=== PATIENT | female | born 1940 | race Two or more races ===

== ENCOUNTER 2024-04-06 10:43 | Observation (INO) | payer OTHER ==
[2024-04-06 11:49] LABS: BASOPHILS ABSOLUTE AUTO 0.02 K/uL (0.00-0.20); BASOPHILS PERCENT AUTO 0.3 % (0.0-1.0); EOSINOPHILS ABSOLUTE AUTO 0.05 K/uL (0.00-0.45); EOSINOPHILS PERCENT AUTO 0.7 % (0.0-6.0); HEMATOCRIT 45.8 % (37.0-47.0); HEMOGLOBIN 15.1 g/dL (12.0-16.0); IMMATURE GRAN ABSOLUTE AUTO 0.02 K/uL (0.00-0.05); IMMATURE GRAN PERCENT AUTO 0.3 % (0.0-0.4); LYMPHOCYTES ABSOLUTE AUTO 1.37 K/uL (1.00-4.80); LYMPHOCYTES PERCENT AUTO 18.5 % (24.0-44.0); MEAN CORPUSCULAR HEMOGLOBIN 30.5 pg (28.0-32.0); MEAN CORPUSCULAR VOLUME 92.5 fL (83.0-99.0); MEAN PLATELET VOLUME 10.4 fL (9.4-12.3); MONOCYTES PERCENT AUTO 9.5 % (0.0-8.0); NEUTROPHILS ABSOLUTE AUTO 5.24 K/uL (1.80-7.70); NEUTROPHILS PERCENT AUTO 70.7 % (41.0-71.0); PLATELET COUNT,PLT 229 K/uL (150-400); RED BLOOD CELL COUNT 4.95 M/uL (4.10-5.30)
[2024-04-06 12:26] LABS: A/G RATIO 1.3 (0.9-1.6); ALBUMIN 3.6 g/dL (3.4-5.0); BILIRUBIN TOTAL 0.9 mg/dL (0.2-1.0); CALCIUM 9.6 mg/dL (8.5-10.1); CARBON DIOXIDE,CO2 35.3 mmol/L (21.0-32.0); CREATININE 2.1 mg/dL (0.6-1.0); EST CRCL DRUG DOSING (CG) 17.77 mL/min; MAGNESIUM 2.3 mg/dL (1.8-2.4); PROTEIN TOTAL,TP 6.4 g/dL (6.4-8.2)
[2024-04-06 12:27] LABS: APPEARANCE,URINE CLOUDY; BILIRUBIN,URINE NEGATIVE (NEGATIVE); COLOR,URINE YELLOW; GLUCOSE,URINE NEGATIVE (NEGATIVE); KETONES,URINE NEGATIVE (NEGATIVE); LEUKOCYTE ESTERASE,URINE MODERATE (NEGATIVE); NITRITE,URINE NEGATIVE (NEGATIVE); OCCULT BLOOD,URINE NEGATIVE (NEGATIVE); PH,URINE 6.5 (5.0-8.0); PROTEIN,URINE NEGATIVE (NEGATIVE); UROBILINOGEN,URINE 0.2 EU/dL (<2.0)
[2024-04-06 12:38] LABS: AMORPHOUS SEDIMENT,URINE FEW (NEGATIVE); BACTERIA,URINE 1+ (NEGATIVE); EPITHELIAL CELLS,URINE OCCASIONAL (NONE-FEW); RBC,URINE 0-2 (0-2/HPF); WBC,URINE 18-26 (0-5/HPF)
[2024-04-06] MEDS: cefTRIAXone 2 GM in Sodium Chloride 0.9% 50 ML IV ONE (13:25)
[2024-04-06] MEDS: Sodium Chloride 0.9% 10 ML Syringe FLUSH PRN (13:27)
[2024-04-06] MEDS ORDERED: Sodium Chloride 0.9% 10 ML Syringe FLUSH PRN (14:54)
[2024-04-06] MEDS ORDERED: Ondansetron 4 MG/2 ML SDV IVPUSH PRN (14:54)
[2024-04-06] MEDS ORDERED: Sodium Chloride 0.9% 2.5 ML Syringe FLUSH PRN (14:54)
[2024-04-06] MEDS ORDERED: Acetaminophen 325 MG Tab PO PRN (14:54)
[2024-04-06] MEDS: Sodium Chloride 0.9% 1,000 ML IV ONE (15:22)
[2024-04-06] MEDS: Amiodarone 200 MG Tab PO SCH (16:24)
[2024-04-06] MEDS: Metoprolol Tartrate 50 MG Tab PO SCH (21:14)
[2024-04-06] MEDS: Apixaban 2.5 MG Tab PO SCH (21:14)
[2024-04-06] MEDS: atorvaSTATin 20 MG Tab PO SCH (21:14)
[2024-04-06] MEDS: Formoterol/Mometasone 200-5 MCG 8.8 GM Inhaler INH SCH (21:20)
[2024-04-07 05:53] LABS: BASOPHILS ABSOLUTE AUTO 0.02 K/uL (0.00-0.20); BASOPHILS PERCENT AUTO 0.3 % (0.0-1.0); EOSINOPHILS ABSOLUTE AUTO 0.16 K/uL (0.00-0.45); EOSINOPHILS PERCENT AUTO 2.2 % (0.0-6.0); HEMATOCRIT 43.9 % (37.0-47.0); HEMOGLOBIN 14.1 g/dL (12.0-16.0); IMMATURE GRAN ABSOLUTE AUTO 0.01 K/uL (0.00-0.05); IMMATURE GRAN PERCENT AUTO 0.1 % (0.0-0.4); LYMPHOCYTES ABSOLUTE AUTO 1.58 K/uL (1.00-4.80); LYMPHOCYTES PERCENT AUTO 21.7 % (24.0-44.0); MEAN CORPUSCULAR HEMOGLOBIN 29.9 pg (28.0-32.0); MEAN CORPUSCULAR HGB CONC 32.1 g/dL (32.0-36.0); MEAN CORPUSCULAR VOLUME 93.2 fL (83.0-99.0); MEAN PLATELET VOLUME 10.9 fL (9.4-12.3); NEUTROPHILS PERCENT AUTO 64.7 % (41.0-71.0); PLATELET COUNT,PLT 209 K/uL (150-400); RED BLOOD CELL COUNT 4.71 M/uL (4.10-5.30); WHITE BLOOD CELL COUNT,WBC 7.27 K/uL (3.9-11.3)
[2024-04-07 06:14] LABS: CALCIUM 8.4 mg/dL (8.5-10.1); CARBON DIOXIDE,CO2 34.7 mmol/L (21.0-32.0); CREATININE 1.9 mg/dL (0.6-1.0); EST CRCL DRUG DOSING (CG) 19.64 mL/min; MAGNESIUM 1.9 mg/dL (1.8-2.4); POTASSIUM,K 3.5 mmol/L (3.5-5.1)
[2024-04-07] MEDS: Levothyroxine 50 MCG Tab PO SCH (07:08)
[2024-04-07] MEDS: Calcitriol 0.25 MCG Cap PO SCH (08:23)
== END 2024-04-07 13:35 | disposition home or self-care (01) ==
LOC: MW.ED 10:43 → MW.MS 13:42
PROVIDERS: ADMIT Internal Medicine; ATTEND Internal Medicine
DX: N17.9 Acute kidney failure, unspecified (principal); I95.9 Hypotension, unspecified; E86.0 Dehydration; R53.1 Weakness; I13.0 Hypertensive heart and chronic kidney disease with heart failure and stage 1 through stage 4 chronic kidney disease, or unspecified chronic kidney disease; I50.32 Chronic diastolic (congestive) heart failure; N18.9 Chronic kidney disease, unspecified; J44.9 Chronic obstructive pulmonary disease, unspecified; E78.00 Pure hypercholesterolemia, unspecified; N30.00 Acute cystitis without hematuria; I27.20 Pulmonary hypertension, unspecified; I48.91 Unspecified atrial fibrillation; Z79.01 Long term (current) use of anticoagulants; Z79.899 Other long term (current) drug therapy; Z79.890 Hormone replacement therapy
CPT/HCPCS: 36415; 71045; 80048; 80053; 81001; 83605; 83735; 83880; 84484; 85025; 87040; 93005; 96365; 99285; A9270; J0696; J3490; J7030; 93010; 96361; 99222; 99238; 99284; G0378

== ENCOUNTER 2024-08-01 18:21 | Inpatient (IN) | payer OTHER ==
[2024-08-01] MEDS ORDERED: Sodium Chloride 0.9% 2.5 ML Syringe FLUSH PRN (19:18)
[2024-08-01] MEDS ORDERED: Sodium Chloride 0.9% 10 ML Syringe FLUSH PRN (19:18)
[2024-08-01] MEDS: Acetaminophen 500 MG Tab PO ONE (19:47)
[2024-08-01 19:50] LABS: BASOPHILS ABSOLUTE AUTO 0.02 K/uL (0.00-0.20); BASOPHILS PERCENT AUTO 0.2 % (0.0-1.0); EOSINOPHILS ABSOLUTE AUTO 0.05 K/uL (0.00-0.45); EOSINOPHILS PERCENT AUTO 0.4 % (0.0-6.0); HEMATOCRIT 30.5 % (37.0-47.0); HEMOGLOBIN 10.1 g/dL (12.0-16.0); IMMATURE GRAN ABSOLUTE AUTO 0.03 K/uL (0.00-0.05); IMMATURE GRAN PERCENT AUTO 0.2 % (0.0-0.4); LYMPHOCYTES PERCENT AUTO 9.1 % (24.0-44.0); MEAN CORPUSCULAR HEMOGLOBIN 29.7 pg (28.0-32.0); MEAN CORPUSCULAR HGB CONC 33.1 g/dL (32.0-36.0); MEAN CORPUSCULAR VOLUME 89.7 fL (83.0-99.0); MEAN PLATELET VOLUME 10.3 fL (9.4-12.3); MONOCYTES ABSOLUTE AUTO 1.13 K/uL (0.00-0.80); MONOCYTES PERCENT AUTO 9.3 % (0.0-8.0); NEUTROPHILS PERCENT AUTO 80.8 % (41.0-71.0); PLATELET COUNT,PLT 259 K/uL (150-400); WHITE BLOOD CELL COUNT,WBC 12.13 K/uL (3.9-11.3)
[2024-08-01] MEDS: Sodium Chloride 0.9% 500 ML IV ONE (19:50)
[2024-08-01] MEDS: Ondansetron 4 MG/2 ML SDV IVPUSH ONE (19:56)
[2024-08-01] MEDS: Morphine 4 MG/ML Syringe IVPUSH ONE (19:56)
[2024-08-01 20:05] LABS: ALBUMIN 3.3 g/dL (3.4-5.0); CALCIUM 8.6 mg/dL (8.5-10.1); CARBON DIOXIDE,CO2 34.3 mmol/L (21.0-32.0); CREATININE 2.1 mg/dL (0.6-1.0); EST CRCL DRUG DOSING (CG) 17.28 mL/min; POTASSIUM,K 3.6 mmol/L (3.5-5.1); PROTEIN TOTAL,TP 6.5 g/dL (6.4-8.2)
[2024-08-01] MEDS: LORazepam 2 MG/ML SDV IVPUSH ONE (20:51)
[2024-08-01 21:17] LABS: APPEARANCE,URINE CLEAR; BILIRUBIN,URINE NEGATIVE (NEGATIVE); COLOR,URINE YELLOW; GLUCOSE,URINE NEGATIVE (NEGATIVE); KETONES,URINE NEGATIVE (NEGATIVE); LEUKOCYTE ESTERASE,URINE TRACE (NEGATIVE); NITRITE,URINE NEGATIVE (NEGATIVE); OCCULT BLOOD,URINE NEGATIVE (NEGATIVE); PH,URINE 5.5 (5.0-8.0); PROTEIN,URINE NEGATIVE (NEGATIVE); UROBILINOGEN,URINE 0.2 EU/dL (<2.0)
[2024-08-01 21:26] LABS: BACTERIA,URINE FEW (NEGATIVE); EPITHELIAL CELLS,URINE FEW (NONE-FEW); RBC,URINE 0-2 (0-2/HPF)
[2024-08-01] MEDS ORDERED: Naloxone 0.4 MG/ML SDV IVPUSH PRN (22:07)
[2024-08-01] MEDS ORDERED: Polyethylene Glycol 3350 Powder 17 GM Packet PO PRN (22:07)
[2024-08-01] MEDS ORDERED: Morphine 2 MG/ML SYRINGE IVPUSH PRN (22:07)
[2024-08-01] MEDS ORDERED: AMIODARONE HCL 100 MG PO SCH (22:15)
[2024-08-01] MEDS ORDERED: Metoprolol Tartrate 50 MG Tab PO SCH (22:15)
[2024-08-01] MEDS ORDERED: Apixaban 2.5 MG Tab PO SCH (22:15)
[2024-08-01] MEDS: cefTRIAXone 1 GM in Sodium Chloride 0.9% 50 ML IV ONE (22:15)
[2024-08-01] MEDS ORDERED: atorvaSTATin 20 MG Tab PO SCH (22:15)
[2024-08-01] MEDS: Sodium Chloride 0.9% 1,000 ML IV ONE (23:58)
[2024-08-02] MEDS: Acetaminophen 325 MG Tab PO SCH (00:06)
[2024-08-02] MEDS: Potassium Chloride 20 MEQ Tab.ER PO ONE ×2 (00:06→12:26)
[2024-08-02 05:48] LABS: BASOPHILS ABSOLUTE AUTO 0.03 K/uL (0.00-0.20); BASOPHILS PERCENT AUTO 0.3 % (0.0-1.0); EOSINOPHILS ABSOLUTE AUTO 0.13 K/uL (0.00-0.45); EOSINOPHILS PERCENT AUTO 1.4 % (0.0-6.0); HEMATOCRIT 29.9 % (37.0-47.0); HEMOGLOBIN 9.6 g/dL (12.0-16.0); IMMATURE GRAN ABSOLUTE AUTO 0.03 K/uL (0.00-0.05); IMMATURE GRAN PERCENT AUTO 0.3 % (0.0-0.4); LYMPHOCYTES ABSOLUTE AUTO 1.41 K/uL (1.00-4.80); LYMPHOCYTES PERCENT AUTO 15.2 % (24.0-44.0); MEAN CORPUSCULAR HEMOGLOBIN 29.6 pg (28.0-32.0); MEAN CORPUSCULAR HGB CONC 32.1 g/dL (32.0-36.0); MEAN CORPUSCULAR VOLUME 92.3 fL (83.0-99.0); MEAN PLATELET VOLUME 10.4 fL (9.4-12.3); MONOCYTES ABSOLUTE AUTO 1.27 K/uL (0.00-0.80); MONOCYTES PERCENT AUTO 13.7 % (0.0-8.0); NEUTROPHILS ABSOLUTE AUTO 6.41 K/uL (1.80-7.70); NEUTROPHILS PERCENT AUTO 69.1 % (41.0-71.0); PLATELET COUNT,PLT 233 K/uL (150-400); RED BLOOD CELL COUNT 3.24 M/uL (4.10-5.30); WHITE BLOOD CELL COUNT,WBC 9.28 K/uL (3.9-11.3)
[2024-08-02 06:09] LABS: CALCIUM 8.3 mg/dL (8.5-10.1); CARBON DIOXIDE,CO2 31.7 mmol/L (21.0-32.0); CREATININE 1.7 mg/dL (0.6-1.0); EST CRCL DRUG DOSING (CG) 21.35 mL/min; POTASSIUM,K 3.3 mmol/L (3.5-5.1)
[2024-08-02] MEDS ORDERED: cefTRIAXone 1 GM in Sodium Chloride 0.9% 50 ML IV SCH ×2 (09:00→22:00)
[2024-08-02] MEDS: Apixaban 2.5 MG Tab PO SCH (12:17)
[2024-08-02] MEDS: Amiodarone 200 MG Tab PO SCH (12:18)
[2024-08-02] MEDS: atorvaSTATin 20 MG Tab PO SCH (12:20)
[2024-08-02] MEDS: Metoprolol Tartrate 50 MG Tab PO SCH (12:21)
[2024-08-02] MEDS: LORazepam 2 MG/ML SDV IVPUSH ONE ×2 (12:53→16:06)
[2024-08-02] MEDS: Ondansetron 4 MG/2 ML SDV IVPUSH PRN (13:05)
[2024-08-02] MEDS ORDERED: Metoprolol Tartrate 5 MG/5 ML SDV IVPUSH PRN (13:18)
[2024-08-02] MEDS: Sodium Chloride 0.9% 1,000 ML IV SCH (13:29)
[2024-08-02] MEDS: Sodium Chloride 0.9% 1,000 ML IV ONE (15:03)
[2024-08-02] MEDS: QUEtiapine 25 MG Tab PO SCH (17:37)
[2024-08-02] MEDS: QUEtiapine 25 MG Tab ONE (18:05)
[2024-08-03] MEDS: Melatonin 3 MG Tab PO PRN (03:19)
[2024-08-03 06:13] LABS: BASOPHILS ABSOLUTE AUTO 0.02 K/uL (0.00-0.20); BASOPHILS PERCENT AUTO 0.3 % (0.0-1.0); EOSINOPHILS ABSOLUTE AUTO 0.09 K/uL (0.00-0.45); EOSINOPHILS PERCENT AUTO 1.3 % (0.0-6.0); HEMATOCRIT 27.3 % (37.0-47.0); HEMOGLOBIN 8.6 g/dL (12.0-16.0); IMMATURE GRAN ABSOLUTE AUTO 0.02 K/uL (0.00-0.05); IMMATURE GRAN PERCENT AUTO 0.3 % (0.0-0.4); LYMPHOCYTES ABSOLUTE AUTO 0.99 K/uL (1.00-4.80); LYMPHOCYTES PERCENT AUTO 14.8 % (24.0-44.0); MEAN CORPUSCULAR HEMOGLOBIN 29.7 pg (28.0-32.0); MEAN CORPUSCULAR HGB CONC 31.5 g/dL (32.0-36.0); MEAN CORPUSCULAR VOLUME 94.1 fL (83.0-99.0); MONOCYTES ABSOLUTE AUTO 0.89 K/uL (0.00-0.80); MONOCYTES PERCENT AUTO 13.3 % (0.0-8.0); PLATELET COUNT,PLT 244 K/uL (150-400); WHITE BLOOD CELL COUNT,WBC 6.71 K/uL (3.9-11.3)
[2024-08-03 06:31] LABS: CALCIUM 8.3 mg/dL (8.5-10.1); CARBON DIOXIDE,CO2 29.5 mmol/L (21.0-32.0); CREATININE 1.7 mg/dL (0.6-1.0); EST CRCL DRUG DOSING (CG) 21.75 mL/min; POTASSIUM,K 4.1 mmol/L (3.5-5.1)
[2024-08-03] MEDS: LORazepam 2 MG/ML SDV IVPUSH ONE (09:14)
[2024-08-03] MEDS: QUEtiapine 25 MG Tab PO SCH (09:17)
[2024-08-03] MEDS: Divalproex Sodium Delayed-Release 125 MG Cap.Sprink PO SCH (18:04)
[2024-08-03] MEDS ORDERED: LORazepam 2 MG/ML SDV IVPUSH PRN (20:00)
[2024-08-03] MEDS ORDERED: QUEtiapine 25 MG Tab PO SCH (21:00)
[2024-08-03] MEDS: Haloperidol 1 MG Tab PO PRN (21:14)
[2024-08-04 06:00] LABS: BASOPHILS ABSOLUTE AUTO 0.05 K/uL (0.00-0.20); BASOPHILS PERCENT AUTO 0.6 % (0.0-1.0); EOSINOPHILS ABSOLUTE AUTO 0.17 K/uL (0.00-0.45); EOSINOPHILS PERCENT AUTO 1.9 % (0.0-6.0); HEMATOCRIT 29.4 % (37.0-47.0); HEMOGLOBIN 9.4 g/dL (12.0-16.0); IMMATURE GRAN ABSOLUTE AUTO 0.03 K/uL (0.00-0.05); IMMATURE GRAN PERCENT AUTO 0.3 % (0.0-0.4); LYMPHOCYTES ABSOLUTE AUTO 1.72 K/uL (1.00-4.80); LYMPHOCYTES PERCENT AUTO 19.7 % (24.0-44.0); MEAN CORPUSCULAR HEMOGLOBIN 29.9 pg (28.0-32.0); MEAN CORPUSCULAR VOLUME 93.6 fL (83.0-99.0); MEAN PLATELET VOLUME 9.8 fL (9.4-12.3); MONOCYTES ABSOLUTE AUTO 0.89 K/uL (0.00-0.80); MONOCYTES PERCENT AUTO 10.2 % (0.0-8.0); NEUTROPHILS ABSOLUTE AUTO 5.88 K/uL (1.80-7.70); NEUTROPHILS PERCENT AUTO 67.3 % (41.0-71.0); NRBC ABSOLUTE 0.05 K/uL (0.00-0.02); NRBC PERCENT 0.6 /100WBC (0.0-0.2); PLATELET COUNT,PLT 320 K/uL (150-400); RED BLOOD CELL COUNT 3.14 M/uL (4.10-5.30); WHITE BLOOD CELL COUNT,WBC 8.74 K/uL (3.9-11.3)
[2024-08-04 06:23] LABS: CALCIUM 9.1 mg/dL (8.5-10.1); CARBON DIOXIDE,CO2 30.3 mmol/L (21.0-32.0); EST CRCL DRUG DOSING (CG) 18.49 mL/min; MAGNESIUM 2.3 mg/dL (1.8-2.4); POTASSIUM,K 3.9 mmol/L (3.5-5.1)
[2024-08-04] MEDS: Haloperidol Lactate 5 MG/ML SDV IM ONE (11:13)
== END 2024-08-04 16:25 | disposition home health service (06) | DRG 683 ==
LOC: MW.ED 18:21 → MW.MS 22:09 → OBSVTOIN 08-02 13:13 → MW.MS 08-02 14:54
PROVIDERS: ADMIT Family Medicine; ATTEND Family Medicine
DX: N17.9 Acute kidney failure, unspecified (principal); F03.C18 Unspecified dementia, severe, with other behavioral disturbance; I50.32 Chronic diastolic (congestive) heart failure; I13.0 Hypertensive heart and chronic kidney disease with heart failure and stage 1 through stage 4 chronic kidney disease, or unspecified chronic kidney disease; F05 Delirium due to known physiological condition; E86.0 Dehydration; I48.91 Unspecified atrial fibrillation; E78.00 Pure hypercholesterolemia, unspecified; J45.909 Unspecified asthma, uncomplicated; N18.9 Chronic kidney disease, unspecified; S70.01XA Contusion of right hip, initial encounter; E78.5 Hyperlipidemia, unspecified; I10 Essential (primary) hypertension; I27.20 Pulmonary hypertension, unspecified; Z79.01 Long term (current) use of anticoagulants; Z98.890 Other specified postprocedural states; Z79.899 Other long term (current) drug therapy; Z79.02 Long term (current) use of antithrombotics/antiplatelets
CPT/HCPCS: 36415; 70450; 70450-26; 72125; 72125-26; 72192; 72192-26; 73030-26-RT; 73030-RT; 73552-26-LT; 73552-RT; 80048; 80053; 81001; 82607; 83690; 83735; 84443; 85025; 87086; 87428-QW; 97116-GP; 97163-GP; A9270-GY; J0696; J1630; J2060; J2270; J2405; J3490; J7030; J7040

== ENCOUNTER 2025-07-25 10:45 | Emergency (ER) | payer OTHER ==
[2025-07-25] MEDS: Magnesium Sulfate (4.06 MEQ/ML) 5 GM/10 ML SDV IV ONE (10:45)
[2025-07-25] MEDS: Calcium Chloride 10% 1 GM/10 ML Syringe IVPUSH ONE (10:46)
[2025-07-25] MEDS: Atropine 0.1 MG/ML 10 ML Syringe IVPUSH ONE (10:46)
== END 2025-07-25 13:49 | disposition expired ==
LOC: MW.ED 10:45
DX: I46.9 Cardiac arrest, cause unspecified (principal); I11.0 Hypertensive heart disease with heart failure; I50.9 Heart failure, unspecified; J45.909 Unspecified asthma, uncomplicated; Z79.890 Hormone replacement therapy; Z79.899 Other long term (current) drug therapy; Z79.01 Long term (current) use of anticoagulants
CPT/HCPCS: 92950; 96374; 96375; 99285; J0168; J0461; J3475; 99283; J3490